=== PATIENT | female | born 2000 ===

== ENCOUNTER 2025-03-15 05:09 | Outpatient (CLI) | payer OTHER, SELFPAY ==
--- NOTE | 2025-03-15 14:12 | DI.RAD_ITS ---
Exam(s) XR FOOT RT LIMITED EXAM: XR FOOT RT LIMITED CLINICAL HISTORY: DEGENERATIVE ARTHRITIS M19.90 DISC DISEASE M51.36. TECHNIQUE: 2D digital imaging was performed of the right foot. Two images were obtained. AP and lateral views were obtained. COMPARISON: No exams were available for comparison FINDINGS: BONES: No acute fracture is present. No bony destructive lesion is seen. JOINTS: No dislocation present. The joint spaces are well maintained. There is no evidence of degenerative or inflammatory arthritis. SOFT TISSUE: Normal. IMPRESSION: Unremarkable radiographs of the right foot. DATA REPOSITORY: RADIATION DOSE DELIVERED:
--- NOTE | 2025-03-15 14:12 | DI.RAD_ITS ---
Exam(s) XR FOOT LT LIMITED EXAM: XR FOOT LT LIMITED CLINICAL HISTORY: DEGENERATIVE ARTHRITIS M19.90 DISC DISEASE M51.36. TECHNIQUE: 2D digital imaging was performed of the left foot. Two images were obtained. AP and lateral views were obtained. COMPARISON: CR XR FOOT RT LIMITED from 03/15/2025 FINDINGS: BONES: No acute fracture is present. No bony destructive lesion is seen. JOINTS: No dislocation present. The joint spaces are well maintained. There is no radiographic evidence of an inflammatory or degenerative arthritis. SOFT TISSUE: Normal. IMPRESSION: Unremarkable radiographs of the left foot. DATA REPOSITORY: RADIATION DOSE DELIVERED:
--- NOTE | 2025-03-15 14:12 | DI.RAD_ITS ---
Exam(s) XR LUMBAR SPINE AP, LAT EXAM: XR LUMBAR SPINE AP, LAT CLINICAL HISTORY: DEGENERATIVE ARTHRITIS M19.90 DISC DISEASE M51.36. TECHNIQUE: 2D digital imaging was performed of the lumbar spine. Three images were obtained. AP, lateral and L5-S1 spot views were obtained. COMPARISON: No exams were available for comparison FINDINGS: BONES: No fracture or destructive lesion. Vertebral bodies are unremarkable. No facet hypertrophy identified. DISKS: Intervertebral disc spaces are maintained. ALIGNMENT: Lumbar spinal alignment is within normal limits. No spondylolysis or spondylolisthesis. SOFT TISSUE: Normal. IMPRESSION: Unremarkable radiographs of the lumbar spine. DATA REPOSITORY: RADIATION DOSE DELIVERED:
--- NOTE | 2025-03-15 14:12 | DI.RAD_ITS ---
Exam(s) XR SHOULDER LT COMPLETE 2+V EXAM: XR SHOULDER LT COMPLETE 2+V CLINICAL HISTORY: DEGENERATIVE ARTHRITIS M19.90 DISC DISEASE M51.36. TECHNIQUE: 2D digital imaging was performed of the left shoulder. Five images were obtained. AP, Grashey, Y-view and axillary views were obtained. COMPARISON: CR XR SHOULDER RT COMPLETE 2+V from 03/15/2025 FINDINGS: BONES: No acute fracture is present. No bony destructive lesion is seen. JOINTS: No dislocation present. The joint spaces are unremarkable. There is no radiographic evidence of an inflammatory or degenerative arthritis. SOFT TISSUE: Normal. IMPRESSION: Unremarkable radiographs of the left shoulder. DATA REPOSITORY: RADIATION DOSE DELIVERED:
--- NOTE | 2025-03-15 14:13 | DI.RAD_ITS ---
Exam(s) XR ELBOW RT LIMITED EXAM: XR ELBOW RT LIMITED CLINICAL HISTORY: DEGENERATIVE ARTHRITIS M19.90 DISC DISEASE M51.36. TECHNIQUE: 2D digital imaging was performed of the left elbow. Two images were obtained. AP and lateral views were obtained. COMPARISON: No exams were available for comparison FINDINGS: BONES: No acute fracture is present. No bony destructive lesion is seen. JOINTS: The elbow is normally aligned. No joint effusion is seen. The joint spaces are unremarkable. There is no radiographic evidence of an inflammatory or degenerative arthritis. SOFT TISSUE: Normal. IMPRESSION: Unremarkable radiographs of the right elbow. DATA REPOSITORY: RADIATION DOSE DELIVERED:
--- NOTE | 2025-03-15 14:13 | DI.RAD_ITS ---
Exam(s) XR ELBOW LT LIMITED EXAM: XR ELBOW LT LIMITED CLINICAL HISTORY: DEGENERATIVE ARTHRITIS M19.90 DISC DISEASE M51.36. TECHNIQUE: 2D digital imaging was performed of the left elbow. Two images were obtained. AP and lateral views were obtained. COMPARISON: There are no priors for comparison. FINDINGS: BONES: No acute fracture is present. No bony destructive lesion is seen. JOINTS: The elbow is normally aligned. No joint effusion is seen. The joint spaces are well maintained. No joint findings are seen to suggest an inflammatory or degenerative arthritis. SOFT TISSUE: Normal. IMPRESSION: Unremarkable radiographs of the left elbow. DATA REPOSITORY: RADIATION DOSE DELIVERED:
--- NOTE | 2025-03-15 14:13 | DI.RAD_ITS ---
Exam(s) XR PELVIS W OBLIQUES 3V EXAM: XR PELVIS W OBLIQUES 3V CLINICAL HISTORY: DEGENERATIVE ARTHRITIS M19.90 DISC DISEASE M51.36. TECHNIQUE: 2D digital imaging was performed. Three views. COMPARISON: No exams were available for comparison FINDINGS: BONES: No acute fracture is present. No bony destructive lesion is seen. JOINTS: No dislocation present. The hip joint spaces are maintained. There is mild spurring at the superior aspect of both acetabula which appear symmetric. SI joints and pubic symphysis are unremarkable. SOFT TISSUE: Normal. IMPRESSION: Mild bilateral acetabular spurring. DATA REPOSITORY: RADIATION DOSE DELIVERED:
--- NOTE | 2025-03-15 14:13 | DI.RAD_ITS ---
Exam(s) XR KNEE RT 3V AP,LAT,ANDREA XR KNEE LT 3V AP,LAT,ANDREA EXAM: XR KNEE LT 3V AP,LAT,ANDREA CLINICAL HISTORY: DEGENERATIVE ARTHRITIS M19.90 DISC DISEASE M51.36. TECHNIQUE: 2D digital imaging was performed. Three views of both knees. COMPARISON: CR XR KNEE RT 3V AP,LAT,ANDREA from 03/15/2025 FINDINGS: BONES: No acute fracture is present. No bony destructive lesion is seen. The bones are normally mineralized. JOINTS: The knee is normally aligned. The joint spaces are maintained. No joint effusion is seen. SOFT TISSUE: Normal. IMPRESSION: Normal radiographs of the bilateral knees DATA REPOSITORY: RADIATION DOSE DELIVERED:
--- NOTE | 2025-03-15 14:13 | DI.RAD_ITS ---
Exam(s) XR SHOULDER RT COMPLETE 2+V EXAM: XR SHOULDER RT COMPLETE 2+V CLINICAL HISTORY: DEGENERATIVE ARTHRITIS M19.90 DISC DISEASE M51.36. TECHNIQUE: 2D digital imaging was performed of the right shoulder. Five images were obtained. AP, Grashey, Y-view and axillary views were obtained. COMPARISON: No exams were available for comparison FINDINGS: BONES: No acute fracture is present. No bony destructive lesion is seen. JOINTS: No dislocation present. The joint spaces are unremarkable. There is no radiographic evidence of degenerative or inflammatory arthritis. SOFT TISSUE: Normal. IMPRESSION: Unremarkable radiographs of the right shoulder. DATA REPOSITORY: RADIATION DOSE DELIVERED:
--- NOTE | 2025-03-15 14:13 | DI.RAD_ITS ---
Exam(s) XR ANKLE LT 2V EXAM: XR ANKLE LT 2V CLINICAL HISTORY: DEGENERATIVE ARTHRITIS M19.90 DISC DISEASE M51.36 TECHNIQUE: 2D digital imaging was performed of the left ankle. Two images were obtained. AP and lateral views were obtained. COMPARISON: No exams were available for comparison FINDINGS: BONES: No acute fracture is present. No bony destructive lesion is seen. JOINTS:The ankle mortise is normally aligned. The joint spaces are unremarkable. No radiographic evidence of a degenerative or inflammatory arthritis are seen. SOFT TISSUE: Normal. IMPRESSION: Unremarkable radiographs of the left ankle. DATA REPOSITORY: RADIATION DOSE DELIVERED:
--- NOTE | 2025-03-15 14:14 | DI.RAD_ITS ---
Exam(s) XR ANKLE RT 2V EXAM: XR ANKLE RT 2V CLINICAL HISTORY: DEGENERATIVE ARTHRITIS M19.90 DISC DISEASE M51.36. TECHNIQUE: 2D digital imaging was performed of the right ankle. Two images were obtained. AP and lateral views were obtained. COMPARISON: CR XR ANKLE LT 2V from 03/15/2025 FINDINGS: BONES: No acute fracture is present. No bony destructive lesion is seen. JOINTS: The ankle mortise is normally aligned. The joint spaces are unremarkable. There is no radiographic evidence of degenerative or inflammatory arthritis. SOFT TISSUE: Normal. IMPRESSION: Unremarkable radiographs of the right ankle. DATA REPOSITORY: RADIATION DOSE DELIVERED:
--- NOTE | 2025-03-15 14:14 | DI.RAD_ITS ---
Exam(s) XR WRIST RT LIMITED EXAM: XR WRIST RT LIMITED CLINICAL HISTORY: DEGENERATIVE ARTHRITIS M19.90 DISC DISEASE M51.36. TECHNIQUE: 2D digital imaging was performed of the right wrist. Two views were obtained. PA and lateral views were obtained. COMPARISON: No exams were available for comparison FINDINGS: BONES: No acute fracture is present. No bony destructive lesion is seen. JOINTS: The carpal bones are normally aligned. The joint spaces are unremarkable. There are no erosions, joint space narrowing, bony productive changes or periarticular osteopenia. There is no radiographic evidence of an inflammatory or degenerative arthritis. SOFT TISSUE: Normal. IMPRESSION: Unremarkable radiographs of the right wrist. DATA REPOSITORY: RADIATION DOSE DELIVERED:
--- NOTE | 2025-03-15 14:14 | DI.RAD_ITS ---
Exam(s) XR WRIST LT LIMITED EXAM: XR WRIST LT LIMITED CLINICAL HISTORY: DEGENERATIVE ARTHRITIS M19.90 DISC DISEASE M51.36. TECHNIQUE: 2D digital imaging was performed of the left wrist. Two images were obtained. PA and lateral views were obtained. COMPARISON: CR XR WRIST RT LIMITED from 03/15/2025 FINDINGS: BONES: No acute fracture is present. No bony destructive lesion is seen. JOINTS: The carpal bones are normally aligned. The joint spaces are unremarkable. There is no radiographic evidence of an inflammatory or degenerative arthritis. SOFT TISSUE: Normal. IMPRESSION: Unremarkable radiographs of the left wrist. DATA REPOSITORY: RADIATION DOSE DELIVERED:
== END 2025-03-15 05:29 ==
PROVIDERS: Visit Provider Chiropractor
DX: M19.09 Primary osteoarthritis, other specified site (principal); M51.360 Other intervertebral disc degeneration, lumbar region with discogenic back pain only
CPT/HCPCS: 73562; 72100; 72190; 73030; 73070; 73100; 73600; 73620